=== PATIENT | male | born 1985 | race Caucasian/White ===

== ENCOUNTER 2017-06-15 05:43 | Day surgery (SDC) | payer OTHER ==
[~2017-06-15] VITALS: Ht 180.3 cm; Wt 83.9 kg
[2017-06-15] MEDS ORDERED: LAMICTAL200 MG PO (05:51)
[2017-06-15] MEDS ORDERED: ULTRAM50 MG PO (05:51)
[2017-06-15] MEDS ORDERED: GABAPENTIN300 MG PO (05:51)
[2017-06-15] MEDS ORDERED: MELATIN3 MG PO (05:52)
[2017-06-15] MEDS ORDERED: ADVIL200 MG PO (06:09)
[2017-06-15] MEDS ORDERED: ASPIRIN325 MG PO (06:09)
--- NOTE | 2017-06-15 08:37 | NUR ---
06/15/17 0837 Karolina Buckner 0831-PATIENT ARRIVED TO PACU ON 6L MASK O2 SAT 100% REACTIVE RAISING HAND. EYES CLOSED. ORAL AIRWAY IN PLACE. DRESSING CDI 0834-ORAL AIRWAY REMOVED. AROUSING OPENING EYES BACK TO SLEEP.
[2017-06-15] MEDS ORDERED: NORCO 5-325 TA1 EACH PO (08:43)
[2017-06-15] MEDS ORDERED: MAPAP325 MG PO (08:43)
--- NOTE | 2017-06-15 09:30 | NUR ---
ICED WATER AND PUDDING GIVEN AND PT TOLERATES THAT WELL. OFFICERS @ BS.
--- NOTE | 2017-06-15 10:26 | NUR ---
PT RESTING W/EYES CLOSED WHEN RN ENTERS ROOM. PT WAKES EASILY AND REQ ADD'L PRN. PT FALLS QUICKLY BACK TO SLEEP WHEN LEFT UNSTIMULATED.
--- NOTE | 2017-06-15 11:27 | NUR ---
LENGTHY DISCUSSION W/PATIENT ABOUT ACCEPTABLE LEVEL OF PAIN AND HE REPORTS HIS CURRENT PAIN LEVEL IS ACCEPTABLE WITH HIM. PT REPORTS "I HAVE BEEN DOZING OFF AND ON QUITE WELL". MORE ICED WATER GIVEN.
--- NOTE | 2017-06-15 11:31 | NUR ---
MORE PUDDING GIVEN.
--- NOTE | 2017-06-15 11:44 | OR ---
[facility] [address], [place] [address] Signed DATE OF OPERATION: 06/15/2017 SURGEON: Melissa Hoffman MD PREOPERATIVE DIAGNOSIS: Right inguinal hernia. POSTOPERATIVE DIAGNOSES: Right inguinal hernia, direct type. PROCEDURE: Repair of right direct inguinal hernia without implantation of mesh. SURGEON: Melissa Hoffman MD. ANESTHESIA: General endotracheal, Caroline Tanvi, [employer] and local 20 mL of 0.25% Marcaine with epinephrine. INDICATION: This 32-year-old white man is a prisoner at [facility] and has been noted to have a right inguinal hernia. It appears to be reducible, is increasingly uncomfortable for him. He also has concurrent low back pain, which is largely resolved at this time. He is admitted to undergo repair of the right inguinal hernia. He understands the risks of bleeding, infection, recurrence and so forth and wished to proceed. It is especially noted that normally I would recommend implantation of Prolene mesh, but the patient is adamant that mesh not be implanted and on that basis, we will honor his request. He does understand there is a high rate of recurrence without mesh. FINDINGS: There is no sign of indirect hernia sac. The floor of the inguinal canal was attenuated consistent with direct hernia. Repair of the floor was then undertaken with reapproximation of the tendon of the transversus abdominis to the shelving edge of Poupart's ligament with interrupted 2-0 Prolene suture. An ilioinguinal nerve was identified and well preserved. A relaxing incision was used as well. DESCRIPTION OF PROCEDURE: The patient was brought to the operating room, given a general endotracheal anesthetic. Preoperative antibiotic Ancef was given. Sequential compression device stockings were used and heparin subcutaneously administered. The lower abdomen was clipped and prepared with a chlorhexidine solution and draped sterilely. A small incision was made cephalad to the pubic tubercle and dissection carried through the subcutaneous tissue with electrocautery. An inferior epigastric vessel was doubly ligated with 3-0 Vicryl tie. Electronically Signed By: MELISSA HOFFMAN MD 06/15/17 1144 PATIENT NAME: ERIC DASILVA OPERATIVE REPORT DATE OF : 83 PHYSICIAN: MELISSA HOFFMAN MD REPORT #: [id number] REPORT IS CONFIDENTIAL AND NOT TO BE RELEASED WITHOUT AUTHORIZATION [facility] [address], [place] [address] Signed External oblique was incised along its fibers revealing the underlying cord and ilioinguinal nerve. The ilioinguinal nerve was dissected free from the cremasteric muscle fibers and reflected medially around the external oblique. The cord was mobilized from the floor and encircled with a Fox drain. Using electrocautery, cremasteric muscle fibers were partially freed revealing no evidence of an indirect sac. There is marked attenuation of the floor of the canal consistent with direct hernia however. An Allis clamp was applied to the tendon of the transversus abdominis. I did not see advantage to incising the attenuated fascia of the transversalis as implantation of mesh was not planned. Interrupted 2-0 Prolene sutures used to imbricate the tendon of the transversus abdominis to the shelving edge of Poupart's ligament up to the internal ring. The internal ring was snugged, but not too tight. A relaxing incision had been made in the fascial component of the internal oblique muscle allowing for a relaxed non tension repair. A 20 mL of 0.25% Marcaine was injected locally for postoperative analgesic effect. The cord was placed into the canal as was the ilioinguinal nerve. External oblique was reapproximated with running 3-0 Vicryl suture. Jesusita's layer was reapproximated with interrupted 2-0 Vicryl and skin closed with running subcuticular 3-0 Vicryl. Steri-Strips were applied. A Mepilex silver sponge dressing was applied as was an OpSite. BLOOD LOSS: Minimal. COMPLICATIONS: None. MD IRVING Hoover/MODL /[id number] Electronically Signed By: MELISSA HOFFMAN MD 06/15/17 1144 PATIENT NAME: ERIC DASILVA OPERATIVE REPORT DATE OF : 83 PHYSICIAN: MELISSA HOFFMAN MD REPORT #: [id number] REPORT IS CONFIDENTIAL AND NOT TO BE RELEASED WITHOUT AUTHORIZATION [facility] [address] [place] [address] [place] [address] Signed cc: EOCI Electronically Signed By: MELISSA HOFFMAN MD 06/15/17 1144 PATIENT NAME: ERIC DASILVA OPERATIVE REPORT DATE OF : 83 PHYSICIAN: MELISSA HOFFMAN MD REPORT #: [id number] REPORT IS CONFIDENTIAL AND NOT TO BE RELEASED WITHOUT AUTHORIZATION
--- NOTE | 2017-06-15 12:08 | NUR ---
PT UP TO BR AND VOIDS 300 ML DARK YELLOW URINE AND REQ DC HOME. VERBAL DC INSTRUCTIONS GIVEN AND PT VERBALIZES UNDERSTANDING. PT DRESSES SELF AND TRANSFERS SELF TO AND DOES SO WELL.
--- NOTE | 2017-06-15 12:12 | NUR ---
CALL REPORT GIVEN TO NURSE DUNN AT [facility]. HER QUESTIONS ARE ANSWERED.
== END 2017-06-15 12:07 | disposition home or self-care (01) ==
LOC: EDBD 05:43 → DS 05:43
PROVIDERS: Surgery
PROC: 0YQ50ZZ Repair Right Inguinal Region, Open Approach (ICD-10-PCS; principal; 2017-06-15 06:45)
DX: K40.90 Unilateral inguinal hernia, without obstruction or gangrene, not specified as recurrent (principal); Z88.8 Allergy status to other drugs, medicaments and biological substances; Z79.899 Other long term (current) drug therapy; Z87.39 Personal history of other diseases of the musculoskeletal system and connective tissue
CPT/HCPCS: 00830; J0330; J0690; J1100; J1644; J1885; J2250; J2405; J2704; J3010; J7120